=== PATIENT | female | born 1990 | race Two or more races ===

== ENCOUNTER 2022-05-05 02:15 | Outpatient (CLI) | payer OTHER | END 2022-05-05 02:16 | disposition short-term general hospital (02) | LOC: EMS 02:15 | DX: Z04.1 Encounter for examination and observation following transport accident (principal) ==

== ENCOUNTER 2023-12-17 12:36 | Outpatient (CLI) | payer OTHER ==
[~2023-12-17 12:36] MED LIST: GADOTERATE MEGLUMINE 7.5 MMOL/15 ML VIAL ONE
[2023-12-17] MEDS: GADOTERATE MEGLUMINE 7.5 MMOL/15 ML VIAL IVP ONE (14:16)
--- NOTE | 2023-12-17 18:47 | MRI Report ---
PROCEDURE: Brain W/WO INDICATIONS: ABSENCE SEIZURE CONTRAST: CLARISCAN 11.4 ML TECHNIQUE: Noncontrast axial T1 spin echo, axial T2 fast spin echo, sagittal and axial FLAIR, coronal T2 fast sp in echo, axial gradient echo, axial diffusion and ADC through the brain. After the administration of contrast, axial and coronal T1 spin echo with fat saturation through the brain. COMPARISON: None. FINDINGS: Image quality: Excellent. CSF spaces: Basal cisterns are patent. No extra-axial fluid collections. Ventricles are normal in size and shape. Brain: No midline shift. No intracranial bleeds or masses. No abnormal intracranial enhancement. A few scattered areas of T2-weighted hyperintensity can be seen within the white matter, which do not enhance. The brainstem appears normal. Diffusion-weighted images demonstrate no acute ischemic insu lts. No chronic ischemic insults. Normal intravascular flow voids are present. In this patient wit h this given history, scrutiny is given to the hippocampal formations. The hippocampi demonstrate a n ormal, symmetric appearance. Skull and face: Calvarial marrow is normal in signal. Orbits appear normal. Sinuses: Sinuses and mastoids appear clear. IMPRESSION: No imaging explanation is found for the patient's presenting symptoms. A few scattered areas of T2 hyperintensity can be seen within the white matter, without enhancement. These are nonspecific, although please consider a edema and a process (including multiple sclerosis) as well as sequelae of migraine headaches. No masses or abnormal enhancement can be seen. Reviewed by: Harley Jacques MD on 12/17/2023 5:45 PM [facility] Approved by: Harley Jacques MD on 12/17/2023 5:45 PM [facility] Station ID: [id number]
== END 2023-12-17 12:37 | disposition home or self-care (01) ==
LOC: DI 12:36
PROVIDERS: ATTEND Nurse Practitioner Family
DX: G40.A09 Absence epileptic syndrome, not intractable, without status epilepticus (principal); R00.0 Tachycardia, unspecified

== ENCOUNTER 2024-03-29 22:47 | Outpatient (CLI) | payer OTHER | END 2024-03-29 23:59 | disposition short-term general hospital (02) | LOC: EMS 22:47 | DX: R56.9 Unspecified convulsions (principal); M79.602 Pain in left arm; S80.211A Abrasion, right knee, initial encounter; V47.0XXA Car driver injured in collision with fixed or stationary object in nontraffic accident, initial encounter; Y93.89 Activity, other specified; Y92.008 Other place in unspecified non-institutional (private) residence as the place of occurrence of the external cause | CPT/HCPCS: A0425; A0429 ==